=== PATIENT | female | born 1995 | race Caucasian/White ===

== ENCOUNTER 2019-08-19 09:39 | Emergency (ER) | payer BC ==
[~2019-08-19] VITALS: Ht 172.7 cm; Wt 96.6 kg
[2019-08-19] MEDS ORDERED: MONTELUKAST SODI4 M1 (09:45)
== END 2019-08-19 12:23 | disposition home or self-care (01) ==
LOC: ER 09:39
DX: J04.0 Acute laryngitis (principal)